=== PATIENT | male | born 2000 | race Caucasian/White ===

== ENCOUNTER → 2021-11-20 16:00 | Outpatient (BNVA) | payer MEDICAID, SELFPAY | PROVIDERS: Visit Provider Family Medicine | DX: Z76.89 Persons encountering health services in other specified circumstances (principal); K59.01 Slow transit constipation; F41.1 Generalized anxiety disorder | CPT/HCPCS: 80053; 84443; 85025 ==

== ENCOUNTER 2023-05-10 20:38 | Emergency (ER) | payer MEDICAID, SELFPAY ==
[2023-05-10 20:44] VITALS: BP 151/98; PULSE 97; RESP 20; TEMP 36.8; O2SAT 100; BMI 31.1
--- NOTE | 2023-05-10 21:18 | XRR_ITS ---
PROCEDURE INFORMATION: Exam: XR Left Shoulder Exam date and time: 05/10/2023 9:27 PM Age: 23 years old Clinical indication: Patient HX: Left shoulder pain. No recent injury. TECHNIQUE: Imaging protocol: Radiologic exam of the left shoulder. Views: 2 or more views. COMPARISON: No relevant prior studies available. FINDINGS: Bones/joints: Normal. Soft tissues: Normal. XR/XR shoulder LT min 2V* [id number] IMPRESSION: No acute findings.
--- NOTE | 2023-05-10 21:33 | ED_ITS ---
Documented by User: JOELLE Hooper 05/10/23 22:40 HPI - Extremity Problem General: Chief complaint: Extremity Injury, Upper Stated complaint: Left arm Pain occasional chest Time Seen by Provider: 05/10/23 20:49 Source: patient Mode of arrival: ambulatory Limitations: no limitations History of Present Illness: Patient is a 23-year-old male presenting to the emergency department complaining of left shoulder pain onset 4 days. Patient notes that he believes he slept on his arm wrong and that this is what caused the pain. The pain is a dull ache that radiates down the triceps to the elbow and then along the forearm. The pain comes intermittently, and he does not report any specific exacerbating factors. He does not report any alleviating factors as well. He denies prior injury or surgery to the shoulder. He further denies any neck pain or numbness/weakness. He does state that he initially thought the pain was from lifting something heavy about a week ago, but now believes it is due to his sleeping. Associated symptoms: Deny chest pain, fever(s) or rash Review of Systems General: Reports: 10 or more systems reviewed and unremarkable except in HPI and below Const: Denies: fever(s), chills or fatigue Eyes: Denies: change in vision ENMT: Denies: throat pain, ear or mastoid pain or nasal discharge Card: Denies: chest pain, palpitations, swelling of feet/ankles or lightheadedness Resp: Denies: dyspnea, productive cough or wheezing GI: Denies: abdominal pain, nausea, vomiting, diarrhea or constipation : Denies: flank pain, difficulty urinating, dysuria or urinary frequency Musc: Reports: extremity pain (LUE) and joint pain (Left shoulder); Denies: neck pain, back pain, extremity swelling, joint swelling, joint redness or joint warmth Skin/Breast: Denies: rash Neuro: Denies: headache(s), numbness in extremities or weakness in extremities PFSH ED PFSH: Family History Grandfather Cancer Prostate / bone cancer Grandmother Diabetes Hypertension Mother Hypertension Father Hypertension Social History Smoking and tobacco/nicotine status: former use of tobacco/nicotine Alcohol intake: never Substance/Drug Use: current Substance/Drug use frequency: daily Adopted: No Caregiver/support person: No Lives independently: Yes Household members: significant other Housing: House Marital status: Life Partner Marital status details: engaged Number of children: 0 Highest education level completed: High School Graduate service: No Current occupational status: unemployed Pets and animals: Yes Leisure activites: exercise Sexually active: Yes Do you think of yourself as: Straight/Heterosexual Current gender identity: Male Special dyllan needs: No Agree to transfusion: Yes Physical Exam Const: COMMON NORMALS: no acute distress, patient oriented x3 and no limitations GENERAL APPEARANCE: cooperative, comfortable and well developed ORIENTATION/CONSCIOUSNESS: Yes awake, Yes oriented to person, Yes oriented to place and Yes oriented to time HENMT: COMMON NORMALS: normocephalic, atraumatic and hearing grossly normal bilaterally HEAD & SCALP: normocephalic and atraumatic Eye: COMMON NORMALS: Equal, round and reactive pupils present, EOMs intact bilaterally and conjunctivae normal CONJUNCTIVA: Yes conjunctivae normal PUPIL: Yes Equal, round and reactive pupils present Neck/C-Spine: COMMON NORMALS: full ROM, supple and no JVD Resp: COMMON NORMALS: normal respiratory effort, No retractions, No use of accessory muscles and clear to auscultation bilaterally AUSCULTATION: clear to auscultation bilaterally Cardio: COMMON NORMALS: no JVD, regular rate, regular rhythm, No clicks present (Cardio), No murmurs present (Cardio) and No rub (Cardio) RATE: regular rate RHYTHM: regular rhythm Extremity: COMMON NORMALS: normal to inspection, full ROM and capillary refill normal LEFT UPPER EXTREMITY: Yes shoulder joint Left shoulder joint: Yes inspection (Normal), Yes palpation (Nontender to palpation), Yes ROM (Mild pain reported with forward flexion of the left shoulder) and Yes neurovascular exam (Distal neurovascular exam intact) Neuro: COMMON NORMALS: patient oriented x3, moves all extremities, no focal motor deficits and no sensory deficits noted SENSORIUM/ORIENTATION: Yes oriented to person, Yes oriented to place and Yes oriented to time Psych: COMMON NORMALS: mental status grossly normal and Normal thought process present THOUGHT PROCESS: Normal thought process present Skin: COMMON NORMALS: no rashes or lesions noted GENERAL SKIN EXAM: no rashes or lesions noted Course Vital Signs: Vital signs: Vital Signs Temperature 98.2 F 05/10/23 23:02 Pulse Rate 97 05/10/23 23:02 Respiratory Rate 20 H 05/10/23 23:02 Blood Pressure 151/98 05/10/23 23:02 Pulse Oximetry 100 05/10/23 23:02 Oxygen Delivery Me thod Room Air 05/10/23 20:44 MDM - Extremity (Nontraumatic) Medical Decision Making This patient was seen and evaluated due to left shoulder pain onset 4 days. Patient's vitals normal on arrival and has remained stable through ED course. Exam ultimately unremarkable aside from some mild reproducible tenderness to palpation about the posterior left shoulder. X-ray did not demonstrate any fractures or other deformities. Patient rechecked after being given steroid, Toradol, and Norflex. He states his pain has gotten better and overall his anxiety has gone away since coming to the ED. Informed that he is likely dealing with a strain with some potential neuropathy versus impingement. Informed him that if his pain persists he needs to follow-up with his primary care for further imaging such as MRI. Will send him home with prescription for prednisone and cyclobenzaprine, and he will take his ibuprofen he already has at home. Return precautions given and patient agrees with discharge home. Lab Data Radiology Impressions Shoulder X-Ray 05/10/23 21:18 IMPRESSION: No acute findings. All radiology interpretation(s) finalized by discharge Discharge Plan Discharge Patient Disposition: Home Clinical Impression: Left shoulder strain Qualifiers: Encounter type: initial encounter Qualified Code(s): S46.912A - Strain of unspecified muscle, fascia and tendon at shoulder and upper arm level, left arm, initial encounter Condition: Stable Prescriptions: New cyclobenzaprine 10 mg tablet 10 mg PO TID Qty: 60 0RF Discharge Orders: Discharge ED (Routine); Ordered 05/10/23 Ordered By: Compa Samuel Referrals: Dev Morel DO [Primary Care Provider] - Patient Instructions: Shoulder Pain (ED) Activity Restrictions/Additional Instructions: Take ibuprofen for pain. Prednisone and cyclobenzaprine as prescribed. Follow- up with your primary care provider if your pain does not improve. Return with any new or concerning symptoms. Coding Level of Care Code ED Grocery Supervisor for Josh Olivierd Documented by User: Reinier Dillard DO 05/17/23 08:12 HPI - Extremity Problem General: Chief complaint: Extremity Injury, Upper Stated complaint: Left arm Pain occasional chest Time Seen by Provider: 05/10/23 20:49 PFSH ED PFSH: Family History Grandfather Cancer Prostate / bone cancer Grandmother Diabetes Hypertension Mother Hypertension Father Hypertension Social History Smoking and tobacco/nicotine status: former use of tobacco/nicotine Alcohol intake: never Substance/Drug Use: current Substance/Drug use frequency: daily Adopted: No Caregiver/support person: No Lives independently: Yes Household members: significant other Housing: House Marital status: Life Partner Marital status details: engaged Number of children: 0 Highest education level completed: High School Graduate service: No Current occupational status: unemployed Pets and animals: Yes Leisure activites: exercise Sexually active: Yes Do you think of yourself as: Straight/Heterosexual Current gender identity: Male Special dyllan needs: No Agree to transfusion: Yes Course Vital Signs: Vital signs: Vital Signs Temperature 98.2 F 05/10/23 23:02 Pulse Rate 97 05/10/23 23:02 Respiratory Rate 20 H 05/10/23 23:02 Blood Pressure 151/98 05/10/23 23:02 Pulse Oximetry 100 05/10/23 23:02 Oxygen Delivery Me thod Room Air 05/10/23 20:44 MDM - Extremity (Nontraumatic) Medical Decision Making This patient was seen and evaluated due to left shoulder pain onset 4 days. Patient's vitals normal on arrival and has remained stable through ED course. Exam ultimately unremarkable aside from some mild reproducible tenderness to palpation about the posterior left shoulder. X-ray did not demonstrate any fractures or other deformities. Patient rechecked after being given steroid, Toradol, and Norflex. He states his pain has gotten better and overall his anxiety has gone away since coming to the ED. Informed that he is likely dealing with a strain with some potential neuropathy versus impingement. Informed him that if his pain persists he needs to follow-up with his primary care for further imaging such as MRI. Will send him home with prescription for prednisone and cyclobenzaprine, and he will take his ibuprofen he already has at home. Return precautions given and patient agrees with discharge home. Chart reviewed Lab Data Radiology Impressions Shoulder X-Ray 05/10/23 21:18 IMPRESSION: No acute findings. Discharge Plan Discharge Patient Disposition: Home Clinical Impression: Left shoulder strain Qualifiers: Encounter type: initial encounter Qualified Code(s): S46.912A - Strain of unspecified muscle, fascia and tendon at shoulder and upper arm level, left arm, initial encounter Condition: Stable Prescriptions: New cyclobenzaprine 10 mg tablet 10 mg PO TID Qty: 60 0RF Discharge Orders: Discharge ED (Routine); Ordered 05/10/23 Ordered By: Compa Samuel Referrals: Dev Morel DO [Primary Care Provider] - Patient Instructions: Shoulder Pain (ED) Activity Restrictions/Additional Instructions: Take ibuprofen for pain. Prednisone and cyclobenzaprine as prescribed. Follow- up with your primary care provider if your pain does not improve. Return with any new or concerning symptoms. Coding Level of Care Code ED Grocery Supervisor for Josh Garcia
[2023-05-10] MEDS: ketorolac 60 mg/2 mL INJ IM (21:43)
[2023-05-10] MEDS: orphenadrine 30 mg/mL Inj 2 mL 60 MG IM (21:43)
[2023-05-10] MEDS: dexamethasone 10 mg/mL INJ 8 MG IM (21:43)
[2023-05-10 23:02] VITALS: BP 151/98; PULSE 97; RESP 20; TEMP 36.8; O2SAT 100
== END 2023-05-10 22:37 | disposition home or self-care (01) ==
PROVIDERS: Emergency Provider Physician Assistant; PCP Family Medicine
DX: S46.912A Strain of unspecified muscle, fascia and tendon at shoulder and upper arm level, left arm, initial encounter (principal); Z87.891 Personal history of nicotine dependence; X50.9XXA Other and unspecified overexertion or strenuous movements or postures, initial encounter
CPT/HCPCS: 73030; 96372; 99284; J1100; J1885; J2360